=== PATIENT | female | born 1935 | race Caucasian/White ===

== ENCOUNTER 2018-06-15 06:53 | Inpatient (IN) | payer OTHER ==
[~2018-06-15] VITALS: Ht 157.5 cm; Wt 70.3 kg
[2018-06-15] MEDS ORDERED: ALBUTEROL SULF 0.083% NEB SOLN 3 ML NEB NEB STA (06:55)
[2018-06-15] MEDS ORDERED: IPRATROPIUM BROMIDE 0.02% 2.5 ML NEB NEB ONE (07:00)
[2018-06-15] MEDS ORDERED: LORAZEPAM INJ 2 MG/ML VIAL IV ONE (07:15)
[2018-06-15 07:27] LABS: BASOPHILS # (AUTO) 0.1 (0.0-0.1); BASOPHILS % 1.3 % (0.0-1.0); EOSINOPHILS # (AUTO) 0.9 (0.0-0.4); HEMATOCRIT 42.1 % (34.2-44.1); HEMOGLOBIN 13.5 g/dL (12.0-16.0); LYMPHOCYTES # (AUTO) 1.8 (1.0-3.2); LYMPHOCYTES % 25.6 % (18.0-39.1); MEAN CORPUSCULAR HEMOGLOBIN 28.1 pg (28-32); MEAN CORPUSCULAR HGB CONC 32.1 g/dL (31-35); MEAN CORPUSCULAR VOLUME 87.5 fL (81-99); MONOCYTES # (AUTO) 0.7 (0.2-0.8); MONOCYTES % 10.1 % (4.4-11.3); NEUTROPHILS # (AUTO) 3.6 (2.1-6.9); NEUTROPHILS % 50.9 % (38.7-80.0); PLATELET COUNT 261 x10e3/uL (140-360); RED BLOOD COUNT 4.81 x10e6/uL (3.6-5.1); RED CELL DISTRIBUTION WIDTH 14.2 % (11.7-14.4)
[2018-06-15 07:35] LABS: BILIRUBIN,URINE NEGATIVE (NEGATIVE); CLARITY,URINE HAZY (CLEAR); COLOR,URINE YELLOW (YELLOW); KETONES,URINE NEGATIVE (NEGATIVE); LEUKOCYTE ESTERASE ,URINE NEGATIVE (NEGATIVE); NITRITE,URINE NEGATIVE (NEGATIVE); PROTEIN,URINE DIPSTICK NEGATIVE (NEGATIVE); URINE UROBILINOGEN 0.2 mg/dL (0.2 - 1)
[2018-06-15 07:39] LABS: BACTERIA,URINE FEW /HPF; EPITHELIAL CELLS,URINE FEW /LPF; RBC,URINE 0-5 /HPF (0-5); WBC,URINE (MAN) 0-5 /HPF (0-5)
[2018-06-15 07:49] LABS: ALANINE AMINOTRANSFERASE 22 IU/L (0-55); ALBUMIN 3.7 g/dL (3.5-5.0); ALBUMIN/GLOBULIN RATIO 1.2 (0.8-2.0); ALKALINE PHOSPHATASE 98 IU/L (40-150); ANION GAP 14.9 mmol/L (8-16); BLOOD UREA NITROGEN 12 mg/dL (7-26); BUN/CREATININE RATIO 16 (6-25); CALCIUM 9.2 mg/dL (8.4-10.2); CARBON DIOXIDE 23 mmol/L (22-29); CHLORIDE 106 mmol/L (98-107); CREATINE KINASE 194 IU/L (29-168); CREATININE, SERUM 0.76 mg/dL (0.57-1.11); EST GLOMERULAR FILTRATION RATE > 60 ML/MIN (60-); GLUCOSE 122 mg/dL (74-118); POTASSIUM 3.9 mmol/L (3.5-5.1); SODIUM 140 mmol/L (136-145)
--- NOTE | 2018-06-15 07:50 | Diagnostic Imaging Report ---
EXAMINATION: CHEST SINGLE (PORTABLE) COMPARISON: None INDICATION: Shortness of breath for 3 days DISCUSSION: Frontal view of the chest obtained at 0729 hours. HEART AND MEDIASTINUM: The cardiomediastinal silhouette is unremarkable. LINES: None. LUNGS: Diffusely hyperinflated suggestive of COPD. No mass. No pneumonia or pulmonary edema. PLEURA: No pleural effusion or pneumothorax. BONES AND SOFT TISSUES: No focal osseous lesion. The soft tissues are normal. IMPRESSION: Diffuse pulmonary hyperinflation suggestive of COPD. No infiltrates or vascular congestion. Signed by: Dr. Dhara Orta MD on 06/15/2018 7:46 AM
[2018-06-15] MEDS ORDERED: LEVOFLOXACIN 500MG/D5W 100ML IV SCH (08:15)
[2018-06-15] MEDS: LEVOFLOXACIN 500MG/D5W 100ML 100 ML IV SCH (09:10)
[2018-06-15] MEDS: ALBUTEROL/IPRATROPIUM 3 ML NEB NEB SCH ×4 (10:20→23:10)
[2018-06-15] MEDS ORDERED: GUAIFENESIN/CODEINE 10 ML CUP PO PRN (11:45)
[2018-06-15] MEDS ORDERED: ONDANSETRON HCL INJ 2 MG/ML VIAL IV PRN (11:45)
[2018-06-15] MEDS: ACETAMINOPHEN 325 MG TAB PO PRN (13:45)
[2018-06-15] MEDS ORDERED: METHYLPREDNISOLONE SOD SUCC 125 MG/2ML VIAL IV SCH (14:00)
--- NOTE | 2018-06-15 14:51 | History and Physical ---
CHIEF COMPLAINT: Respiratory failure on BiPAP, wheezing, acute exacerbation of COPD from second-hand smoking. HISTORY: This is an 83-year-old female. Her was a heavy smoker of 4 packs per day for many years. She has second-hand smoke COPD. She came in with acute asthma and COPD exacerbation. She is having increasing shortness of breath and wheezing. The patient was unable to breathe. Her oxygen saturation is in the 80s%. She did receive some multiple nebulizer treatments. Currently, she is on BiPAP. The patient is otherwise stable. PAST MEDICAL HISTORY: Cardiac arrhythmia. COPD. Hypertension. Osteoarthritis. MEDICATIONS: List will be available for review. ALLERGIES: DEMEROL, PENICILLIN, SULFA, MORPHINE. PAST SURGICAL HISTORY: Bilateral hip surgery. Hysterectomy. Appendectomy. SOCIAL HISTORY: Patient was a second-hand smoker from her . She does not use alcohol. She lives at [place]. She has very good family support. Her son is by her bedside. REVIEW OF SYSTEMS: Shortness of breath. Chest pain due to BiPAP and shortness of breath. PHYSICAL EXAMINATION VITAL SIGNS: Temperature is 98. Blood pressure 144/81. Pulse rate is 96. Respirations 24 on BiPAP. HEENT: Normocephalic, atraumatic, anicteric. NECK: Supple grossly. PULMONARY: Bilateral coarses and wheezes with respiratory support. CARDIOVASCULAR: S1, S2. Regular rate and rhythm. No murmur, gallop or rub. ABDOMEN: Soft. EXTREMITIES: Trace edema. NEUROLOGIC: No focal deficit. Moving all extremities. LABORATORY: WBC 7.1, hemoglobin 13.5, hematocrit 42, platelets 261. Chemistry: Sodium 140, potassium 3.9, chloride 106, bicarb 23, BUN 12, creatinine 0.8. Glucose 122. Troponin is 0.005. BNP is 45.6. Urinalysis is unremarkable. Chest x-ray: Diffuse pulmonary hypoinflation suggestive of COPD. IMPRESSION 1. Acute respiratory failure, requiring BiPAP at this time. 2. Acute exacerbation of chronic obstructive pulmonary disease. 3. Advanced chronic obstructive pulmonary disease with diffuse pulmonary hyperinflation. 4. Baseline cardiac arrhythmia on multiple medications. PLAN: Continue with IV Solu-Medrol. BiPAP. Consultation with Dr. Elmer Helton. DVT prophylaxis. Resume home medications when available. Will continue to monitor this patient closely. CT of chest without IV contrast. Job#: [id number] MH
[2018-06-15 15:12] LABS: CREATINE KINASE MB 5.3 ng/mL (0-5.0)
[2018-06-15] MEDS ORDERED: FUROSEMIDE INJ 10 MG/ML 4 ML VIAL IV ONE (16:00)
--- NOTE | 2018-06-15 16:06 | Consultation ---
DATE OF CONSULTATION: June 15, 2018 PULMONARY CONSULTATION REASON FOR CONSULTATION: Shortness of breath and wheezing. HPI: Ms. Jaquez is an 83-year-old female. She presented to the emergency room with worsening shortness of breath. She is a lifelong nonsmoker. She reports that she has history of asthma. She is using nebulizer with Ventolin and ipratropium. Also uses albuterol inhaler as well. She also reported that she was supposed to use Symbicort 2 times a day; however, she is using it every 4 hours because she is unable to breathe. She has also noticed that she has bilateral leg swelling going on for the last few months. She denies any chest pain, nausea, vomiting, diarrhea. Some exposure to second-hand smoke with her son smoking. Otherwise, she has never smoked herself. REVIEW OF SYSTEMS GENERAL: Denies any fever or chills. HEAD: Denies any head trauma. ENT: Denies any earache. CVS: Denies any chest pain. RESPIRATORY: As in HPI. GI: Denies any nausea or vomiting. MUSCULOSKELETAL: Denies any arthralgias or myalgias. NEURO: Denies any focal weakness. OTHER: The rest of the review of systems are negative except as in HPI. PAST MEDICAL HISTORY: Hypertension, arrhythmias, osteoarthritis. PAST SURGICAL HISTORY: Hip surgery, hysterectomy, appendectomy. ALLERGIES: DEMEROL, PENICILLIN, SULFA, MORPHINE. FAMILY AND SOCIAL HISTORY: She does not smoke and does not drink. She is a retired high school social science teacher. PHYSICAL EXAMINATION VITAL SIGNS: Temperature 98.6, pulse of 90, blood pressure 154/75. Respiratory rate of 18. O2 sat 99%. HEENT: Head is atraumatic, normocephalic. NECK: Supple. No JVD. Thyroid not enlarged. CHEST: Wheezing and crackles bilaterally. HEART: S1, S2 audible. ABDOMEN: Soft, nontender and nondistended. EXTREMITIES: No clubbing or cyanosis. Bilateral pedal edema. NEUROLOGIC: Awake and alert. No focal neurological deficit. Moving all 4 extremities. LABS: White count of 7000, hemoglobin 13.5, platelets 261. Chemistry: Sodium 140, potassium 3.9, chloride 106. BUN 12, creatinine 0.76. Troponin negative. Mildly increased CK-MB. BNP is 45.9. Chest x-ray is showing no focal infiltrate. Reported as hyperinflation; however, I disagree with the reading. ASSESSMENT: Ms. Jaquez is an 83-year-old female who presented with worsening shortness of breath and wheezing. Lifelong nonsmoker. Also has pedal edema bilaterally. Symptoms have been going on for a few months. She has seasonal allergies. It appears that the patient probably has severe uncontrolled asthma with multiple exacerbations. May have turned into chronic obstructive asthma as patient is reporting history of asthma for quite some time. It is also possible that she has acute worsening of heart failure. However, the BNP is normal. She has pedal edema. PLAN 1. I will continue the patient on Solu-Medrol; however, I will reduce the dose to 40 mg IV q.8 h. 2. Nebulizer treatment has been ordered every 4 hours, which will be continued. 3. I will continue the antibiotics at this point and will do a CT of the chest without contrast. Chest x-ray is not showing any evidence of pneumonia. However, there is a possibility of lower lobe pneumonia that is missed on chest x-ray. 4. Will also do an echocardiogram as patient has pedal edema, and possibility of heart failure is also there. I will also give 1 dose of Lasix as well. 5. At this point, continue the patient on BiPAP. I have reviewed the settings. These settings will be continued. She is on FiO2 of 60%, saturating 100%. 6. Hold off on ABG for now. 7. Lovenox subcutaneous for DVT prophylaxis. Thank you for this consult. Job#: [id number]
[2018-06-15] MEDS: ENOXAPARIN SOD INJ 40 MG/0.4 ML SYR SC SCH (16:30)
[2018-06-15 17:41] VITALS: BP 158/88
[2018-06-15 20:00] VITALS: BP 183/97
[2018-06-15] MEDS: METHYLPREDNISOLONE SOD SUCC 40 MG/ML VIAL IV SCH (21:37)
[2018-06-15] MEDS ORDERED: CLONIDINE HCL0.3 MG PO (21:57)
[2018-06-15 23:54] VITALS: BP 188/100
[2018-06-16] VITALS (15 sets, daily range): BP systolic 122–188; BP diastolic 59–100
[2018-06-16] MEDS: ALBUTEROL/IPRATROPIUM 3 ML NEB NEB SCH ×6 (03:23→23:08)
[2018-06-16] MEDS: METHYLPREDNISOLONE SOD SUCC 40 MG/ML VIAL IV SCH ×3 (06:21→20:33)
[2018-06-16] MEDS: CLONIDINE HCL 0.3 MG TAB PO SCH ×2 (08:51→16:57)
[2018-06-16] MEDS: LEVOFLOXACIN 500MG/D5W 100ML 100 ML IV SCH (08:52)
[2018-06-16] MEDS: GUAIFENESIN/DEXTROMETHORPHAN LIQD 5 ML UDC PO PRN (09:14)
[2018-06-16] MEDS: ACETAMINOPHEN 325 MG TAB PO PRN (11:27)
[2018-06-16] MEDS: BENZONATATE 100 MG CAP PO PRN (11:27)
[2018-06-16] MEDS: ENOXAPARIN SOD INJ 40 MG/0.4 ML SYR SC SCH (16:56)
[2018-06-16] MEDS: BUDESONIDE 0.5MG/2 ML NEB INH SCH (18:31)
[2018-06-17] VITALS (28 sets, daily range): BP systolic 119–206; BP diastolic 39–115
[2018-06-17] MEDS: ALBUTEROL/IPRATROPIUM 3 ML NEB NEB SCH ×6 (02:09→22:45)
[2018-06-17] MEDS: METHYLPREDNISOLONE SOD SUCC 40 MG/ML VIAL IV SCH ×3 (05:43→21:00)
--- NOTE | 2018-06-17 06:14 | Diagnostic Imaging Report ---
EXAM: CHEST SINGLE (PORTABLE), AP 1 view INDICATION: Wheezing COMPARISON: AP view of the chest June 15, 2018 FINDINGS: LINES/TUBES: None LUNGS: Mild bibasilar atelectasis and bronchial thickening. PLEURA: No effusions or pneumothorax. HEART AND MEDIASTINUM: Normal size and contour. BONES AND SOFT TISSUES: No acute findings. IMPRESSION: Mild bronchial thickening and bibasilar atelectasis. Findings could be secondary to reactive airways disease or bronchitis. Signed by: Dr. Mila Vail M.D. on 06/17/2018 6:11 AM
[2018-06-17] MEDS: CLONIDINE HCL 0.3 MG TAB PO SCH ×2 (06:20→16:38)
[2018-06-17] MEDS: BUDESONIDE 0.5MG/2 ML NEB INH SCH ×2 (07:15→18:55)
[2018-06-17] MEDS: LEVOFLOXACIN 500MG/D5W 100ML 100 ML IV SCH (09:51)
[2018-06-17] MEDS: BENZONATATE 100 MG CAP PO PRN (10:01)
[2018-06-17] MEDS: ACETAMINOPHEN 325 MG TAB PO PRN ×2 (12:08→21:00)
[2018-06-17] MEDS: ALPRAZOLAM 0.25 MG TAB PO PRN (14:30)
[2018-06-17] MEDS ORDERED: DEXMEDETOMIDINE HCL 200 MCG in SODIUM CHLORIDE 0.9% 50ML 48 ML IV PRN (14:30)
[2018-06-17] MEDS ORDERED: METHYLPREDNISOLONE SOD SUCC 125 MG/2ML VIAL IV NR (14:30)
[2018-06-17] MEDS: GUAIFENESIN/DEXTROMETHORPHAN LIQD 5 ML UDC PO PRN (14:30)
[2018-06-17] MEDS: ENOXAPARIN SOD INJ 40 MG/0.4 ML SYR SC SCH (16:38)
--- NOTE | 2018-06-17 17:44 | Diagnostic Imaging Report ---
PROCEDURE: CT CHEST WITHOUT CONTRAST CT scan of the chest WITHOUT intravenous contrast, using standard protocol. TECHNIQUE: The chest was scanned utilizing a multidetector helical scanner from the apex to the level of the adrenal glands. No IV contrast was administered per physician request. Coronal and sagittal multiplanar reformations were obtained. COMPARISON: None. INDICATIONS: SHORTNESS OF BREATH, COPD exacerbation. FINDINGS: Lines/tubes: None. Lungs and Airways: Minimal bilateral upper lobe centrilobular emphysematous changes. Mild apical pleural-parenchymal scarring. 4 mm pulmonary nodule in the lateral right lower lobe (series 3, image 63). No pulmonary nodules. No masses or consolidation. Moderate wall thickening in the central aspect bilateral upper and lower lobe bronchi. Airways are clear, without endobronchial lesions. Pleura: No effusion, or pneumothorax. Heart and mediastinum: There is unremarkable. Heart size is normal. No pericardial effusion. Atherosclerotic calcification of the aortic valves, coronary arteries and thoracic aorta. Aorta is non-aneurysmal. Main pulmonary artery is normal in caliber. Lymph nodes: No mediastinal or axillary adenopathy. Difficult to assess for hilar adenopathy given the lack of intravenous contrast. Abdomen: Limited views of the upper abdomen show no abnormality within the visualized spleen, pancreas, or kidneys. 5 mm calcification in the left adrenal gland (series 2 image 13). Increased attenuation of the hepatic parenchyma. No focal lesions. Bones: No aggressive lytic lesion. Generalized osteopenia. Multilevel degenerative disc changes in the thoracic spine. IMPRESSION: 1. minimal bilateral upper lobe centrilobular emphysematous changes. No consolidation. 2. 4 mm pulmonary nodule in the lateral right lower lobe. Consider followup noncontrast low dose nodule protocol chest CT in 12 months to document stability. 3. Moderate wall thickening in the central aspect of bilateral upper lower lobe bronchi, likely sequela of chronic bronchitis. 4. 5 mm calcification in the left adrenal gland, which is likely sequela of prior infection or inflammation. ePter Palacio M.D. Dictated by: Peter Palacio M.D. on 06/17/2018 at 17:49 Electronically approved by: Peter Palacio M.D. on 06/17/2018 at 17:49
[2018-06-18] VITALS (8 sets, daily range): BP systolic 107–145; BP diastolic 55–93
[2018-06-18] MEDS: BENZONATATE 100 MG CAP PO PRN ×3 (00:22→17:38)
[2018-06-18] MEDS: ALBUTEROL/IPRATROPIUM 3 ML NEB NEB SCH ×5 (02:45→19:45)
[2018-06-18 05:02] LABS: BASOPHILS % 0.1 % (0.0-1.0); HEMATOCRIT 39.1 % (34.2-44.1); HEMOGLOBIN 12.5 g/dL (12.0-16.0); LYMPHOCYTES # (AUTO) 0.6 (1.0-3.2); LYMPHOCYTES % 6.2 % (18.0-39.1); MEAN CORPUSCULAR VOLUME 87.5 fL (81-99); MONOCYTES # (AUTO) 0.4 (0.2-0.8); MONOCYTES % 3.9 % (4.4-11.3); NEUTROPHILS # (AUTO) 8.8 (2.1-6.9); NEUTROPHILS % 89.3 % (38.7-80.0); PLATELET COUNT 251 x10e3/uL (140-360); RED BLOOD COUNT 4.47 x10e6/uL (3.6-5.1); RED CELL DISTRIBUTION WIDTH 14.2 % (11.7-14.4)
[2018-06-18] MEDS: METHYLPREDNISOLONE SOD SUCC 40 MG/ML VIAL IV SCH ×3 (05:30→21:57)
[2018-06-18 05:31] LABS: ANION GAP 14.6 mmol/L (8-16); BLOOD UREA NITROGEN 20 mg/dL (7-26); BUN/CREATININE RATIO 28 (6-25); CALCIUM 9.3 mg/dL (8.4-10.2); CARBON DIOXIDE 26 mmol/L (22-29); CHLORIDE 104 mmol/L (98-107); CREATININE, SERUM 0.71 mg/dL (0.57-1.11); EST GLOMERULAR FILTRATION RATE > 60 ML/MIN (60-); GLUCOSE 155 mg/dL (74-118); POTASSIUM 4.6 mmol/L (3.5-5.1); SODIUM 140 mmol/L (136-145)
[2018-06-18] MEDS: BUDESONIDE 0.5MG/2 ML NEB INH SCH ×2 (07:00→20:15)
[2018-06-18] MEDS: ALPRAZOLAM 0.25 MG TAB PO PRN (09:36)
[2018-06-18] MEDS: LEVOFLOXACIN 500MG/D5W 100ML 100 ML IV SCH (09:36)
[2018-06-18] MEDS: CLONIDINE HCL 0.3 MG TAB PO SCH ×2 (09:55→17:53)
[2018-06-18] MEDS: GUAIFENESIN/DEXTROMETHORPHAN LIQD 5 ML UDC PO PRN (13:33)
[2018-06-18] MEDS: ACETYLCYSTEINE 20% INHAL SOLN 30 ML VIAL INH SCH ×2 (14:15→19:45)
[2018-06-18] MEDS: ENOXAPARIN SOD INJ 40 MG/0.4 ML SYR SC SCH (17:37)
[2018-06-19] VITALS (46 sets, daily range): BP systolic 115–186; BP diastolic 61–93
[2018-06-19] MEDS: ALBUTEROL/IPRATROPIUM 3 ML NEB NEB SCH ×6 (03:30→19:15)
[2018-06-19] MEDS: BENZONATATE 100 MG CAP PO PRN (04:34)
[2018-06-19] MEDS: METHYLPREDNISOLONE SOD SUCC 40 MG/ML VIAL IV SCH ×3 (06:23→22:25)
[2018-06-19] MEDS: BUDESONIDE 0.5MG/2 ML NEB INH SCH ×3 (07:00→19:15)
[2018-06-19] MEDS: ALPRAZOLAM 0.25 MG TAB PO PRN (09:25)
[2018-06-19] MEDS: LEVOFLOXACIN 500MG/D5W 100ML 100 ML IV SCH (10:00)
[2018-06-19] MEDS: CLONIDINE HCL 0.3 MG TAB PO SCH ×2 (10:01→17:13)
[2018-06-19] MEDS ORDERED: DEXMEDETOMIDINE HCL 200 MCG in SODIUM CHLORIDE 0.9% 50ML 48 ML IV PRN ×4 (10:45)
[2018-06-19] MEDS: ACETYLCYSTEINE 20% INHAL SOLN 30 ML VIAL INH SCH ×4 (10:45→19:15)
--- NOTE | 2018-06-19 11:44 | Diagnostic Imaging Report ---
PROCEDURE: CHEST SINGLE (PORTABLE) COMPARISON: None. INDICATIONS: SHORTNESS OF BREATH FINDINGS: LUNGS: No consolidations or edema. PLEURA: No effusions or pneumothorax. HEART \T\ MEDIASTINUM: The heart is within normal size-limits. BONES \T\ SOFT TISSUES: No acute findings. CONCLUSION: No acute thoracic abnormality. Denver Bhatti D.O. Dictated by: Denver Bhatti D.O. on 06/19/2018 at 11:50 Electronically approved by: Denver Bhatti D.O. on 06/19/2018 at 11:50
[2018-06-19] MEDS: ENOXAPARIN SOD INJ 40 MG/0.4 ML SYR SC SCH (17:13)
[2018-06-20] VITALS (85 sets, daily range): BP systolic 110–186; BP diastolic 57–99
[2018-06-20] MEDS: ALBUTEROL/IPRATROPIUM 3 ML NEB NEB SCH ×7 (00:15→23:00)
[2018-06-20] MEDS: ACETYLCYSTEINE 20% INHAL SOLN 30 ML VIAL INH SCH ×2 (00:15→07:00)
[2018-06-20] MEDS: ALPRAZOLAM 0.25 MG TAB PO PRN ×2 (02:30→09:30)
[2018-06-20] MEDS: METHYLPREDNISOLONE SOD SUCC 40 MG/ML VIAL IV SCH ×3 (06:52→22:38)
[2018-06-20] MEDS: BUDESONIDE 0.5MG/2 ML NEB INH SCH ×2 (07:20→19:15)
[2018-06-20] MEDS: LEVOFLOXACIN 500MG/D5W 100ML 100 ML IV SCH (07:47)
[2018-06-20] MEDS: CLONIDINE HCL 0.3 MG TAB PO SCH ×2 (07:47→16:59)
--- NOTE | 2018-06-20 13:19 | Progress Note ---
DATE: I am covering for Dr. Jackman. SUBJECTIVE: Patient is doing well overnight. She is currently on Precedex and on BiPAP. Pulmonary is following the patient. She is also on steroids and neb treatments. No overnight events. There is some concern for some underlying anxiety leading to her respiratory distress. LABORATORY DATA: White count 9.9, hemoglobin 12.5, hematocrit is 39, platelets of 251. Chemistry: Sodium 140, potassium 4.6, chloride 104, bicarb 26, anion gap of 14, BUN is 20, creatinine is 0.71. LFTs were found to be normal. Troponin is negative. MICROBIOLOGY: Blood and sputum cultures were all negative. IMAGING STUDIES: Chest x-ray performed on June 19, 2018 shows no acute findings. PHYSICAL EXAMINATION VITAL SIGNS: Temperature is 98.4, pulse 88, respiratory rate is 20, blood pressure 169/75, she is on a BiPAP now. GENERAL: Not in acute distress, alert and oriented x3, cooperative on exam. HEENT: Head; normocephalic and atraumatic. Eyes; pupils are equal, round and reactive to light bilaterally. Extraocular movements intact bilaterally. Throat; no evidence of any erythema or exudates in the posterior pharynx. Has good dentition. NECK: Supple. Good range of motion. PULMONARY: Clear to auscultation bilaterally. No wheezing, no rales, no rhonchi, no crackles appreciated. CARDIOVASCULAR: Positive S1, S2. No murmurs, rubs, or gallops appreciated. ABDOMEN: Soft, nondistended, nontender to palpation. Bowel sounds present. MUSCULOSKELETAL: Strength is 5/5 throughout. No evidence of any musculoskeletal deficit on examination. No weakness appreciated. NEUROLOGICAL: Cranial nerves II through XII grossly intact. No evidence of any neurological deficits on exam. SKIN: Intact. Warm to touch. Good capillary refill. PSYCHIATRIC: Normal affect and mood. EXTREMITIES: No edema. Good range of motion throughout. IMPRESSION 1. Acute hypoxemic respiratory failure. 2. Acute exacerbation of asthma. 3. Severe anxiety. 4. Underlying chronic obstructive pulmonary disease. PLAN: Continue with steroids, neb treatments, and antibiotics. Pulmonary following. She is currently on BiPAP. Continue with Precedex. There may be a big component of anxiety leading to her underlying respiratory distress. She is currently very comfortable during my examination. We will continue to follow. Job#: [id number] SYDNEE
[2018-06-20] MEDS: BENZONATATE 100 MG CAP PO PRN (16:59)
[2018-06-20] MEDS: ENOXAPARIN SOD INJ 40 MG/0.4 ML SYR SC SCH (16:59)
[2018-06-20] MEDS: QUETIAPINE FUMARATE 25 MG TAB PO SCH (16:59)
[2018-06-21] VITALS (46 sets, daily range): BP systolic 120–192; BP diastolic 57–104
[2018-06-21] MEDS: ALBUTEROL/IPRATROPIUM 3 ML NEB NEB SCH ×6 (03:15→22:55)
[2018-06-21 04:56] LABS: BASOPHILS % 0.4 % (0.0-1.0); HEMATOCRIT 41.6 % (34.2-44.1); HEMOGLOBIN 13.4 g/dL (12.0-16.0); LYMPHOCYTES # (AUTO) 0.6 (1.0-3.2); LYMPHOCYTES % 10.6 % (18.0-39.1); MEAN CORPUSCULAR HEMOGLOBIN 27.9 pg (28-32); MEAN CORPUSCULAR HGB CONC 32.2 g/dL (31-35); MEAN CORPUSCULAR VOLUME 86.5 fL (81-99); MONOCYTES # (AUTO) 0.3 (0.2-0.8); MONOCYTES % 4.6 % (4.4-11.3); NEUTROPHILS # (AUTO) 4.7 (2.1-6.9); NEUTROPHILS % 83.2 % (38.7-80.0); PLATELET COUNT 214 x10e3/uL (140-360); RED BLOOD COUNT 4.81 x10e6/uL (3.6-5.1)
[2018-06-21 05:21] LABS: ANION GAP 13.4 mmol/L (8-16); BLOOD UREA NITROGEN 21 mg/dL (7-26); BUN/CREATININE RATIO 31 (6-25); CALCIUM 8.6 mg/dL (8.4-10.2); CARBON DIOXIDE 26 mmol/L (22-29); CHLORIDE 103 mmol/L (98-107); CREATININE, SERUM 0.67 mg/dL (0.57-1.11); EST GLOMERULAR FILTRATION RATE > 60 ML/MIN (60-); GLUCOSE 138 mg/dL (74-118); POTASSIUM 4.4 mmol/L (3.5-5.1); SODIUM 138 mmol/L (136-145)
[2018-06-21] MEDS: METHYLPREDNISOLONE SOD SUCC 40 MG/ML VIAL IV SCH ×3 (06:18→21:36)
[2018-06-21] MEDS: ALPRAZOLAM 0.25 MG TAB PO PRN (08:01)
[2018-06-21] MEDS: QUETIAPINE FUMARATE 25 MG TAB PO SCH ×2 (08:01→16:37)
[2018-06-21] MEDS: BUDESONIDE 0.5MG/2 ML NEB INH SCH ×2 (08:04→19:05)
[2018-06-21] MEDS: CLONIDINE HCL 0.3 MG TAB PO SCH ×2 (08:05→16:37)
[2018-06-21] MEDS: LEVOFLOXACIN 500MG/D5W 100ML 100 ML IV SCH (09:33)
[2018-06-21] MEDS: FUROSEMIDE INJ 10 MG/ML 2 ML VIAL IV SCH (12:20)
[2018-06-21] MEDS: POTASSIUM CHLORIDE 10 MEQ TABCR PO SCH (12:20)
[2018-06-21] MEDS ORDERED: ALPRAZOLAM 0.25 MG TAB PO PRN (14:00)
[2018-06-21] MEDS: ALPRAZOLAM 0.25 MG TAB PO SCH (16:37)
[2018-06-21] MEDS: ENOXAPARIN SOD INJ 40 MG/0.4 ML SYR SC SCH (17:16)
--- NOTE | 2018-06-21 20:51 | Progress Note ---
DATE: June 21, [address] Jackman. SUBJECTIVE: The patient is doing much better. She is off of Precedex. We added Seroquel and some anxiety medications. She is doing much better according to the nursing staff. There is likely a big component of anxiety leading to her respiratory distress. OBJECTIVE VITAL SIGNS: Temperature is 97.5, pulse 95, respiratory rate 18. She is currently in BiPAP, but she is on and off. She is usually on nasal cannula at 2 L. Blood pressure 124/57, pulse ox 94% on room air. GENERAL: Not in acute distress. Alert and oriented times 3. Cooperative on examination. HEENT: Head is normocephalic and atraumatic. Eyes: Pupils equal, round and reactive to light bilaterally. Extraocular muscles intact bilaterally. NECK: Supple. Good range of motion. Throat with no evidence of any erythema or exudates in the posterior pharynx. Has poor dentition. PULMONARY: Clear to auscultation bilaterally. No wheezing, rales or rhonchi. She does have expiratory wheezing appreciated on exam. CARDIOVASCULAR: Positive S1 and S2. No murmurs, rubs or gallops appreciated. ABDOMEN: Soft, nondistended and nontender to palpation. Bowel sounds present. MUSCULOSKELETAL: Strength is 5/5 throughout. No evidence of muscle deficit on examination. No weakness appreciated. NEUROLOGICAL: Cranial nerves II-XII are grossly intact. No evidence of any neurological deficit on exam. SKIN: Intact. Warm to touch. Good cap refill. PSYCHIATRIC: Normal affect and mood. EXTREMITIES: No edema. Good range of motion throughout. LAB FINDINGS: Show a white count of 5.6, hemoglobin 13, hematocrit 42, and platelets of 214,000. Chemistry: Sodium 138, potassium 4.4, chloride 103, bicarb 26, anion gap of 13, BUN is 21, creatinine is 0.6, glucose is 138. MICROBIOLOGY: All cultures were found to be negative. IMAGING STUDIES: Nothing new. IMPRESSION 1. Acute hypoxemic respiratory failure secondary to acute exacerbation of asthma. 2. Acute exacerbation of asthma. 3. Severe anxiety. 4. Component of underlying chronic obstructive pulmonary disease. PLAN: At this time, we are going to continue with steroids, neb treatments and antibiotics. Pulmonary is following. Seroquel and Ativan have been added. She is off of Precedex. There is some feeling that the patient likely has some underlying anxiety leading to her shortness of breath. Will continue to monitor right now in the ICU. Pulmonary is following on this case. We spent more than 35 minutes on this case. Job#: [id number] IVANIA
[2018-06-21] MEDS: ACETAMINOPHEN 325 MG TAB PO PRN (21:36)
[2018-06-22] VITALS (7 sets, daily range): BP systolic 132–190; BP diastolic 64–93
[2018-06-22] MEDS: ALBUTEROL/IPRATROPIUM 3 ML NEB NEB SCH ×6 (04:25→22:50)
[2018-06-22] MEDS: METHYLPREDNISOLONE SOD SUCC 40 MG/ML VIAL IV SCH ×3 (06:23→21:30)
[2018-06-22] MEDS: ACETAMINOPHEN 325 MG TAB PO PRN (06:23)
[2018-06-22] MEDS: BUDESONIDE 0.5MG/2 ML NEB INH SCH ×2 (07:14→19:25)
[2018-06-22] MEDS ORDERED: SODIUM CHLORIDE 0.9% 250ML 250 ML ONE (08:04)
[2018-06-22] MEDS: QUETIAPINE FUMARATE 25 MG TAB PO SCH ×2 (08:29→17:09)
[2018-06-22] MEDS: POTASSIUM CHLORIDE 10 MEQ TABCR PO SCH (08:29)
[2018-06-22] MEDS: FUROSEMIDE INJ 10 MG/ML 2 ML VIAL IV SCH (08:29)
[2018-06-22] MEDS: CLONIDINE HCL 0.3 MG TAB PO SCH ×2 (08:29→17:09)
[2018-06-22] MEDS: LEVOFLOXACIN 500MG/D5W 100ML 100 ML IV SCH (08:30)
[2018-06-22] MEDS: ALPRAZOLAM 0.25 MG TAB PO SCH ×2 (08:30→17:09)
[2018-06-22] MEDS: ENOXAPARIN SOD INJ 40 MG/0.4 ML SYR SC SCH (16:59)
--- NOTE | 2018-06-22 18:18 | Progress Note ---
DATE: I am covering for Dr. Jackman. SUBJECTIVE: The patient is now off of BiPAP and currently on nasal cannula, and breathing much better. Her vital signs were stable when I evaluated her. OBJECTIVE VITAL SIGNS: Temperature is 97.9, pulse 111, respiratory rate is 19, blood pressure is 132/64, pulse ox 98% on 2 L nasal cannula. GENERAL: Not in acute distress. Alert and oriented times 3. Cooperative on examination. HEENT: Head is normocephalic and atraumatic. Eyes: Pupils equal, round and reactive to light bilaterally. Extraocular movements intact bilaterally. NECK: Supple. Good range of motion. Throat with no evidence of any erythema or exudates in the posterior pharynx. Has poor dentition. PULMONARY: Expiratory wheezing appreciated. No rales. No rhonchi. No crackles appreciated. CARDIOVASCULAR: Positive S1 and S2. No murmurs, rubs or gallops appreciated. ABDOMEN: Soft, nondistended and nontender to palpation. Bowel sounds present. MUSCULOSKELETAL: Strength is 5/5 throughout. No evidence of any muscle deficit on examination. No weakness appreciated. NEUROLOGICAL: Cranial nerves II-XII are grossly intact. No evidence of any neurological deficits on exam. SKIN: Intact. Warm to touch. Good cap refill. PSYCHIATRIC: Normal affect and mood. EXTREMITIES: No edema. Good range of motion throughout. LAB FINDINGS: Show none. MICROBIOLOGY: Negative. IMAGING STUDIES: None. ASSESSMENT AND PLAN 1. Acute hypoxemic respiratory failure secondary to acute exacerbation of asthma. 2. Component of underlying chronic obstructive pulmonary disease. 3. Acute exacerbation of asthma. 4. Severe anxiety. PLAN: At this time, the patient is off of BiPAP. She is on nasal cannula. Will continue with steroids, neb treatments and antibiotics. We are going to arrange for home oxygen in which the nurse has been notified and will arrange with case management. Otherwise, she is doing well and back to her baseline with no other issues. Once she is approved for oxygen and cleared by the consultants, will discharge home. Job#: [id number] IVANIA
[2018-06-22] MEDS ORDERED: PANTOPRAZOLE SOD 40 MG TABEC PO ONE (22:15)
[2018-06-22] MEDS ORDERED: CALCIUM CARBONATE 500 MG CHEWABLE TABS PO ONE (22:15)
[2018-06-23] VITALS (8 sets, daily range): BP systolic 131–176; BP diastolic 58–86
[2018-06-23] MEDS ORDERED: CALCIUM CARBONATE 500 MG CHEWABLE TABS ONE (02:38)
[2018-06-23] MEDS: ALBUTEROL/IPRATROPIUM 3 ML NEB NEB SCH ×6 (03:15→23:01)
[2018-06-23] MEDS: METHYLPREDNISOLONE SOD SUCC 40 MG/ML VIAL IV SCH ×2 (05:45→18:03)
[2018-06-23] MEDS: BUDESONIDE 0.5MG/2 ML NEB INH SCH ×2 (07:00→19:37)
[2018-06-23] MEDS: CLONIDINE HCL 0.3 MG TAB PO SCH ×2 (07:05→16:54)
[2018-06-23] MEDS: LOSARTAN POTASSIUM 25 MG TAB PO SCH (08:32)
[2018-06-23] MEDS: PANTOPRAZOLE SOD 40 MG TABEC PO SCH (08:32)
[2018-06-23] MEDS: FUROSEMIDE INJ 10 MG/ML 2 ML VIAL IV SCH (08:32)
[2018-06-23] MEDS: POTASSIUM CHLORIDE 10 MEQ TABCR PO SCH (08:33)
[2018-06-23] MEDS: QUETIAPINE FUMARATE 25 MG TAB PO SCH ×2 (08:33→16:54)
[2018-06-23] MEDS: ALPRAZOLAM 0.25 MG TAB PO SCH ×2 (08:33→16:54)
[2018-06-24] VITALS (8 sets, daily range): BP systolic 99–181; BP diastolic 50–84
[2018-06-24] MEDS: ALBUTEROL/IPRATROPIUM 3 ML NEB NEB SCH ×6 (03:02→23:40)
[2018-06-24] MEDS: ACETAMINOPHEN 325 MG TAB PO PRN ×2 (03:57→15:07)
[2018-06-24] MEDS: METHYLPREDNISOLONE SOD SUCC 40 MG/ML VIAL IV SCH ×2 (06:00→17:01)
[2018-06-24] MEDS: BUDESONIDE 0.5MG/2 ML NEB INH SCH ×2 (07:30→20:00)
[2018-06-24] MEDS: PANTOPRAZOLE SOD 40 MG TABEC PO SCH (08:30)
[2018-06-24] MEDS: CLONIDINE HCL 0.3 MG TAB PO SCH ×2 (08:59→17:01)
[2018-06-24] MEDS: FUROSEMIDE INJ 10 MG/ML 2 ML VIAL IV SCH (08:59)
[2018-06-24] MEDS: POTASSIUM CHLORIDE 10 MEQ TABCR PO SCH (09:00)
[2018-06-24] MEDS: QUETIAPINE FUMARATE 25 MG TAB PO SCH ×2 (09:00→17:01)
[2018-06-24] MEDS: ALPRAZOLAM 0.25 MG TAB PO SCH ×2 (09:00→17:01)
[2018-06-24] MEDS: LOSARTAN POTASSIUM 25 MG TAB PO SCH (09:00)
[2018-06-24] MEDS: MONTELUKAST SODIUM 10 MG TAB PO SCH (21:00)
[2018-06-25] VITALS (8 sets, daily range): BP systolic 110–185; BP diastolic 55–81
[2018-06-25] MEDS: ALBUTEROL/IPRATROPIUM 3 ML NEB NEB SCH ×6 (03:00→23:35)
[2018-06-25] MEDS: METHYLPREDNISOLONE SOD SUCC 40 MG/ML VIAL IV SCH (06:00)
[2018-06-25] MEDS: BUDESONIDE 0.5MG/2 ML NEB INH SCH ×2 (08:05→19:45)
[2018-06-25] MEDS: LOSARTAN POTASSIUM 25 MG TAB PO SCH ×2 (08:16→17:03)
[2018-06-25] MEDS: PANTOPRAZOLE SOD 40 MG TABEC PO SCH (08:16)
[2018-06-25] MEDS: FUROSEMIDE INJ 10 MG/ML 2 ML VIAL IV SCH (08:16)
[2018-06-25] MEDS: ALPRAZOLAM 0.25 MG TAB PO SCH ×2 (08:16→17:03)
[2018-06-25] MEDS: QUETIAPINE FUMARATE 25 MG TAB PO SCH ×2 (08:16→17:03)
[2018-06-25] MEDS: POTASSIUM CHLORIDE 10 MEQ TABCR PO SCH (08:16)
[2018-06-25] MEDS: CLONIDINE HCL 0.3 MG TAB PO SCH ×2 (08:16→17:03)
[2018-06-25] MEDS ORDERED: ONDANSETRON HCL 4 MG ORAL DISINTEGRATING TAB PO PRN (09:15)
[2018-06-25] MEDS: PREDNISONE 10 MG TAB PO SCH (17:03)
[2018-06-25] MEDS: TRAMADOL HCL 50 MG TAB PO PRN (20:20)
[2018-06-25] MEDS: MONTELUKAST SODIUM 10 MG TAB PO SCH (20:24)
[2018-06-26] VITALS: BP 137/62
[2018-06-26] MEDS: TRAMADOL HCL 50 MG TAB PO PRN (00:02)
[2018-06-26] MEDS: BENZONATATE 100 MG CAP PO PRN (00:05)
[2018-06-26] MEDS: ALBUTEROL/IPRATROPIUM 3 ML NEB NEB SCH ×2 (02:25→07:00)
[2018-06-26 04:00] VITALS: BP 151/72
[2018-06-26 07:44] VITALS: BP 153/70
[2018-06-26 07:46] VITALS: BP 153/70
[2018-06-26] MEDS: CLONIDINE HCL 0.3 MG TAB PO SCH (07:58)
[2018-06-26] MEDS: ALPRAZOLAM 0.25 MG TAB PO SCH (07:58)
[2018-06-26] MEDS: QUETIAPINE FUMARATE 25 MG TAB PO SCH (07:58)
[2018-06-26] MEDS: PREDNISONE 10 MG TAB PO SCH (07:58)
[2018-06-26] MEDS: PANTOPRAZOLE SOD 40 MG TABEC PO SCH (07:58)
[2018-06-26] MEDS: POTASSIUM CHLORIDE 10 MEQ TABCR PO SCH (07:59)
[2018-06-26] MEDS: LOSARTAN POTASSIUM 25 MG TAB PO SCH (07:59)
[2018-06-26] MEDS ORDERED: FUROSEMIDE 40 MG TAB PO SCH (09:00)
--- NOTE | 2018-06-26 09:58 | Discharge Summary ---
CIVIL ENGINEERING DESIGN DRAFTSPERSON: Dr. Moi Tejeda. FINAL DIAGNOSES 1. Respiratory failure, status post bilevel positive airway pressure treatment. 2. Severe acute exacerbation of asthma. 3. Acute exacerbation of chronic obstructive pulmonary disease. 4. Acute bronchitis. 5. Medical debility, anxiety, and depression. SUMMARY: Patient is an 83-year-old female who came into the hospital with respiratory failure. Patient required BiPAP. Chest x-ray showed diffuse pulmonary hyperinflation suggestive of COPD. No infiltrate. Patient also has baseline asthma. She is a second-hand smoker, never smoked in her life, but her was smoking 2 to 4 packs per day when he was alive. The patient required BiPAP. She was almost intubated but was better with BiPAP and subsequently on high-dose steroids as well. Patient was admitted to the ICU. Subsequently changed transferred out of ICU after she was doing much better. Patient continued to use BiPAP from time to time. She is doing better now. She is on oxygen support. Her physical therapy has been limited. The patient is stable. At her baseline, she was able to do things for herself and able to live by herself. Now, because of hospitalization, she is weak. She needs therapy for returning back to her baseline. The patient is evaluated. She will go to skilled facility today. Continue with her oral medications. She will continue with 1. Albuterol q.4 h. schedule and as needed. 2. Xanax 0.25 mg b.i.d. and then q.8 h. as needed. 3. Continue with cough medication. 4. Nebulizer with Pulmicort. 5. Oral Lasix 40 mg daily. 6. Continue her clonidine. 7. Singulair 10 mg at night. 8. Protonix 40 mg daily. 9. Prednisone 10 mg b.i.d. and subsequently titration. 10. Seroquel 12.5 mg twice a day. 11. Tramadol 50 mg q.4 h. p.r.n. for pain. The patient is also getting potassium 10 mEq daily. The patient is stable, discharged to skilled today. PT/OT. Regular diet as tolerated. Activity: As tolerated. Job#: [id number]
[2018-06-26 11:45] VITALS: BP 162/78
== END 2018-06-26 13:53 | DRG 189 ==
LOC: ER 06:53 → ERHOLD 08:03 → IMCU 16:59 → ICU 06-16 17:40 → IMCU 06-17 19:22 → ICU 06-19 10:54 → IMCU 06-21 18:02
PROVIDERS: ADMIT Internal Medicine; ATTEND Internal Medicine
PROC: 5A09457 Assistance with Respiratory Ventilation, 24-96 Consecutive Hours, Continuous Positive Airway Pressure (ICD-10-PCS; principal; 2018-06-15)
DX: J96.01 Acute respiratory failure with hypoxia (principal); J44.1 Chronic obstructive pulmonary disease with (acute) exacerbation; I50.30 Unspecified diastolic (congestive) heart failure; J44.0 Chronic obstructive pulmonary disease with (acute) lower respiratory infection; J45.901 Unspecified asthma with (acute) exacerbation; I49.9 Cardiac arrhythmia, unspecified; Z88.5 Allergy status to narcotic agent; Z88.0 Allergy status to penicillin; Z88.2 Allergy status to sulfonamides; Z77.22 Contact with and (suspected) exposure to environmental tobacco smoke (acute) (chronic); J30.2 Other seasonal allergic rhinitis; F41.9 Anxiety disorder, unspecified; Z66 Do not resuscitate; R53.81 Other malaise; F41.0 Panic disorder [episodic paroxysmal anxiety]; J20.9 Acute bronchitis, unspecified; Z88.8 Allergy status to other drugs, medicaments and biological substances; Z91.041 Radiographic dye allergy status; I11.0 Hypertensive heart disease with heart failure
CPT/HCPCS: 36415; 51700; 71045; 71250; 80048; 80053; 81001; 82550; 82553; 83605; 83880; 84484; 85025; 87040; 87070; 87205; 93005; 93306; 94010; 94640; 94660; 97139; 99284; J1650; J1940; J1956; J2060; J2920; J2930; J7050